=== PATIENT | male | born 1965 | race Two or more races ===

== ENCOUNTER 2017-07-25 10:08 | Day surgery (SDC) | payer OTHER ==
[~2017-07-25 10:08] MED LIST: EPHEDrine SULFATE 50 MG/5 ML SYG; ERTAPENEM SODIUM 1 GM in SOD CHLORIDE 0.9% 100 ML IVPB
[2017-07-25 11:35] LABS: POTASSIUM 4.2 mmol/L (3.5-5.1)
[2017-07-25] MEDS ORDERED: PROPOFOL 20 ML (12:26)
[2017-07-25] MEDS ORDERED: METOCLOPRAMIDE 10 MG INJ (12:27)
[2017-07-25] MEDS ORDERED: ONDANSETRON 4 MG INJ (12:27)
[2017-07-25] MEDS ORDERED: FENTAnyl 50 MCG/ML VIAL (12:27)
[2017-07-25] MEDS ORDERED: MIDAZOLAM 1 MG/ML 2 ML INJ (12:27)
[2017-07-25] MEDS: IOHEXOL 300MG/ML 30 ML BTL (13:11)
[2017-07-25] MEDS ORDERED: METHYLENE BLUE 1% 10 ML INJ (13:20)
[2017-07-25] MEDS ORDERED: HYDROCODONE/APAP (5/325) TAB PO (14:30)
== END 2017-07-25 17:06 | disposition home or self-care (01) ==
LOC: SDS 10:08
DX: N13.1 Hydronephrosis with ureteral stricture, not elsewhere classified (principal); E11.9 Type 2 diabetes mellitus without complications; I10 Essential (primary) hypertension
CPT/HCPCS: 52332; 74420; 82962; 84132; 87086